=== PATIENT | female | born 1995 | race Hispanic/Latino ===

== ENCOUNTER 2017-03-16 11:19 | Emergency (ER) | payer BC, OTHER ==
[2017-03-16 11:40] VITALS: BP 115/78; PULSE 77; RESP 18; TEMP 98.4; O2SAT 99
--- NOTE | 2017-03-16 12:31 | ED PDOC ---
Arrival/HPI - General Chief Complaint: ENT Problem Time Seen by Provider: 03/16/17 12:30 Historian: Patient, Family (mother) - History of Present Illness Narrative History of Present Illness (Text): 03/16/17 12:40 This 21 yo female presents to to this ED with mother c/o a swelling under her tongue x 2 days. Patient also noted swelling under her chin. Patient denies fever, sore throat, dysphagia, sob, cough, recent travel or sick contact. Time/Duration: Other (2 days) Context: Home Past Medical History - Provider Review Nursing Documentation Reviewed: Yes - Infectious Disease Hx of Infectious Diseases: None - Reproductive Menopause: No - Psychiatric Hx Substance Use: No - Surgical History Hx Tonsillectomy: Yes Family/Social History - Physician Review Nursing Documentation Reviewed: Yes Family/Social History: No Known Family HX Smoking Status: Unknown If Ever Smoked Hx Alcohol Use: No Hx Substance Use: No Allergies/Home Meds Allergies/Adverse Reactions: Allergies No Known Allergies Allergy (Verified 03/16/17 11:40) Home Medications: Home Meds Medication Instructions Recorded Confirmed B Control 03/16/17 Review of Systems - Review of Systems Constitutional: Normal. absent: Fatigue, Weight Change, Fevers Eyes: Normal ENT: Other (See HPI). absent: Voice Changes, Sore Throat, Rhinorrhea Respiratory: Normal Cardiovascular: Normal Gastrointestinal: Normal Genitourinary Female: Normal Musculoskeletal: Normal Skin: Normal Neurological: Normal, Other (Denies dysphagia). absent: Headache, Dizziness, Speech Changes, Facial Droop Endocrine: Normal Hemo/Lymphatic: Normal Psychiatric: Normal Physical Exam Vital Signs Temp Pulse Resp BP Pulse Ox 03/16/17 11:36 98.4 F 77 18 115/78 99 Temperature: Afebrile Blood Pressure: Normal Pulse: Regular Respiratory Rate: Normal Appearance: Positive for: Well-Appearing, Non-Toxic, Comfortable Pain Distress: None Mental Status: Positive for: Alert and Oriented X 3 - Systems Exam Head: Present: Atraumatic, Normocephalic Pupils: Present: PERRL Extroacular Muscles: Present: EOMI Conjunctiva: Present: Normal Mouth: Present: Moist Mucous Membranes, Normal Lips, Normal Tounge, Normal Teeth , Other ((+) sub lingual gland duct under tongue appears mild swelling). No: Drooling Pharnyx: Present: Normal. No: ERYTHEMA, EXUDATE, TONSILS ENLARGED Neck: Present: Normal Range of Motion Respiratory/Chest: Present: Clear to Auscultation, Good Air Exchange. No: Respiratory Distress, Accessory Muscle Use Back: Present: Normal Inspection Upper Extremity: Present: Normal Inspection. No: Cyanosis, Edema Lower Extremity: Present: Normal Inspection. No: Edema Neurological: Present: GCS=15, CN II-XII Intact, Speech Normal, Motor Func Grossly Intact, Normal Sensory Function, Normal Cerebellar Funct, Gait Normal, Memory Normal Skin: Present: Warm, Dry, Normal Color. No: Rashes Psychiatric: Present: Alert, Oriented x 3, Normal Insight, Normal Concentration Medical Decision Making ED Course and Treatment: 03/16/17 13:16 Re-evaluation. Patient feels better. Discussed results and plan with patient who expresses understanding. All questions answered and there is agreement with the plan to discharge home with instructions. Patient stable for discharge. Return if symptoms persist or worsen. Recommended to f/u ENT in 2-3 days Re-evaluation Time: 13:16 Reassessment Condition: Re-examined, Improved - Medication Orders Current Medication Orders: Discontinued Medications Clindamycin HCl (Cleocin) 300 mg PO STAT STA PRN Reason: Protocol Stop: 03/16/17 12:51 Last Admin: 03/16/17 13:18 Dose: 300 mg Disposition/Present on Arrival - Present on Arrival Any Indicators Present on Arrival: No History of DVT/PE: No History of Uncontrolled Diabetes: No Urinary Catheter: No History of Decub. Ulcer: No History Surgical Site Infection Following: None - Disposition Have Diagnosis and Disposition been Completed?: Yes Diagnosis: Sublingual infection Disposition: HOME/ ROUTINE Disposition Time: 13:17 Patient Plan: Discharge Condition: GOOD Discharge Instructions (ExitCare): Sialoadenitis (ED) Additional Instructions: Call private ENT doctor for follow up visit in 2-3 days. Take medication as instructed. Try to massage salivary gland under chin while chewing Lemon. Return to emergency if symptoms worsen. Prescriptions: Clindamycin [Cleocin] 300 mg PO TID #21 cap Naproxen 500 mg PO BID #10 tab Referrals: Joe Jacobson DO [[facility]] - Follow up with primary Forms: WORK NOTE
== END 2017-03-16 13:33 | disposition home or self-care (01) ==
LOC: ED 11:19
DX: K14.0 Glossitis (principal)